=== PATIENT | female | born 1950 | race Caucasian/White ===

== ENCOUNTER 2024-01-31 11:43 | Emergency (ER) | payer MEDICARE, SELFPAY ==
[2024-01-31 11:54] VITALS: BP 190/94
[2024-01-31 12:24] LABS: % Basophils 0.3 % (0-2); % Eosinophils 3.6 % (0-6); % Immature Granulocytes 0.3 % (0-0.5); % Lymphocytes 28.6 % (20.5-51.1); % Monocytes 6.5 % (1.7-9.3); % Neutrophils 60.7 % (42.2-75.2); Absolute Eosinophils 0.2 10^3/uL (0-0.7); Absolute Lymphocytes 1.8 10^3/uL (1.2-3.4); Absolute Monocytes 0.4 10^3/uL (0.1-0.6); Absolute Neutrophils 3.7 10^3/uL (1.4-6.5); Hematocrit 39.7 % (37.0-47.0); Hemoglobin 13.6 g/dL (12.0-16.0); Mean Corp Hgb Conc. 34.3 g/dL (33.0-37.0); Mean Corpuscular Volume 93.4 fL (81.0-99.0); Mean Platelet Volume 9.8 fL (7.4-10.4); Nucleated Red Blood Cells % 0 %; Platelet Count 227 10^3/uL (130-400); Red Blood Cell Count 4.25 10^6/uL (4.20-5.40); Red Cell Dist. Width 12.3 % (11.5-14.5); White Blood Cell Count 6.1 10^3/uL (4.8-10.8)
[2024-01-31 12:42] LABS: ALT (SGPT) 31 U/L (0-35); AST (SGOT) 32 U/L (14-36); Albumin 4.9 g/dl (3.5-5.0); Alkaline Phosphatase 51 U/L (38-126); Blood Urea Nitrogen 17 mg/dl (7-17); Calcium 9.8 mg/dl (8.4-10.2); Carbon Dioxide 27 mmol/L (22-30); Chloride 105 mmol/L (98-107); Glucose 96 mg/dl (70-99); Potassium 4.5 mmol/L (3.5-5.1); Sodium 143 mmol/L (135-145); Total Bilirubin 0.8 mg/dl (0.2-1.3); Total Protein 7.7 g/dl (6.3-8.2); eGFR > 60.00
[2024-01-31 12:48] LABS: NT-proBNP 134 pg/ml; Troponin I < 0.012 ng/ml
[2024-01-31 13:38] VITALS: BP 150/70
--- NOTE | 2024-01-31 14:07 | ED.GENMED ---
History of Present Illness
General
Chief Complaint: Blood Pressure Problem
Source: patient
Exam Limitations: none
Time Seen by Provider: 01/31/24 13:52
Nursing documentation reviewed up to this point in time: agreed with
History of Present Illness
History of Present Illness:
73-year-old female with history of HTN, HLD presents stating 'my blood pressure was going higher and higher this morning.' States she's had sinus stuffiness and cough past 3 days, family stressors, poor sleep last night, her BP was '150, then 160,
then 170 and 180' so she went to who couldn't see her then so came here. Denies CP, SOB, abdominal pain. Denies n/v/d/c. Denies headache or feeling lightheaded or dizzy.
Past History
Past History
ED Past Medical History: HTN, Hypercholesterolemia and Other ('abnormal EKG')
ED Past Surgical History: None
Social History
Tobacco: Non-smoker
Alcohol: None
Personal:
Living: with family
Review of Systems
Review of Systems
Allergies reviewed?: Yes
All Other Systems: ROS reviewed and negative except as documented in HPI and ROS
Constitutional: Denies fever or fatigue
Respiratory: Denies trouble breathing
Cardiac: Denies chest pain or palpitations
ABD/GI: Denies abdominal pain, nausea, vomiting, diarrhea or anorexia
: Denies dysuria, frequency or difficulty voiding
Musculoskeletal: Reports no symptoms
Skin: Reports no symptoms
Neurological: Reports no symptoms
Psychiatric: Reports other (stressed due to family issue)
Phy Exam
Physical Exam
Physical Exam:
GENERAL: No acute distress. A&Ox3.
CONSTITUTIONAL: Afebrile.
EYES: Clear, conjunctivae normal
ENMT: moist mucus membranes, Pharynx nl
RESPIRATORY: Regular respirations, nonlabored, lungs clear.
CARDIOVASCULAR: Regular rate and rhythm, no murmurs, no rubs.
GI: Soft, nontender, normal BS
MUSCULOSKELETAL: Moves with ease. Well perfused.
SKIN: Warm, dry, pink
PSYCH: Normal mood and affect. Well kept, interactive and appropriate
NEUROLOGIC: Awake, alert and oriented. No focal neurological deficits
Course
Orders/Labs/Results
Orders:
Orders
01/31/24 11:58
Electrocardiogram (*1) Urgent
Reason for Study: Other
Other Reason for Exam: HTN
CR Chest - 2 Views Urgent
Comment:
Reason For Exam: cough
01/31/24 11:59
EKG- Treatment ONCE
01/31/24 12:12
Complete Blood Count/With Diff Urgent
Comprehensive Metabolic Panel Urgent
NT-proBNP Urgent
Troponin I Urgent
Abnormal Lab Results
01/31/24
12:12
MCH 32.0 H pg
(27.0-31.0)
01/31/24 12:12
01/31/24 12:12
Vital Signs
Initial and Last Documented VS:
Initial Vital Signs
Temp Pulse Resp BP Pulse Ox
98.1 F 72 18 190/94 98
01/31/24 11:54 01/31/24 11:54 01/31/24 11:54 01/31/24 11:54 01/31/24 11:54
Last Documented Vital Signs
Temp Pulse Resp BP Pulse Ox
98.1 F 72 18 150/64 98
01/31/24 11:54 01/31/24 14:19 01/31/24 14:19 01/31/24 14:19 01/31/24 14:19
MDM/Problems Addressed
MDM/Problems Addressed:
73-year-old female with history of HTN, HLD presents stating 'my blood pressure was going higher and higher this morning.' States she's had sinus stuffiness and cough past 3 days, family stressors, poor sleep last night, her BP was '150, then 160,
then 170 and 180' so she went to who couldn't see her then so came here. Denies CP, SOB, abdominal pain. Denies n/v/d/c. Denies headache or feeling lightheaded or dizzy.
BP now 150/70, asymptomatic
EKG: sinus with 1st degree block, LBB, left axis deviation. Pt states 'I know my EKG is abnormal' [facility] in [place] follows her, she's had Holter monitor and told not to worry. She does want a photo lab technician in this area. Referral provided
Labs normal.
CXR NAD
Pt reassured, she and state, that's all she needed was reassurance.
They are comfortable going home.
Return instructions discussed.
Referred to Cardiology catering convention services manager.
Referred to PCP hotline as she wants PCP in this area also.
Chronic conditions affecting care: HTN
*Critical Care Note
Total Time (30-74mins, 75-104mins- exclusive of procedures): Not Applicable
ED Attending Note
-
Portions of this chart may have been created with voice recognition software.� Occasional wrong word or��sound alike� substitutions may have occurred due to the inherent limitations of voice recognition software.
Discharge Plan
Departure
Patient Disposition: Home (Routine Discharge)
Date of Disposition: 01/31/24
Time of Disposition: 14:30
Patient with high blood pressure during this ER visit?: No
Condition: Good
Discharge Problem:
episode high blood pressure, Hypertension
Instructions: Stress, BLOOD PRESSURE
Referrals:
Tricia Naranjo, DO [Family Provider] -
Millicent Mora, [Active] - Next open appointment
Activity Restrictions/Additional Instructions:
As we discussed, your work up here today shows nothing worrisome.
Call the cardiology office and make next available appointment.
Someone will call you regarding a primary care provider
Interventions
Interventions:
*General Assessment Last Done: 01/31/24 11:54
Discharge Date and Time
Print Language: FRENCH
[2024-01-31 14:19] VITALS: BP 150/64
== END 2024-01-31 14:20 | disposition home or self-care (01) ==
LOC: EMR 11:43
PROVIDERS: Emergency Medicine; EMERGENCY PHYSICIAN Student in an Organized Health Care Education/Training Program; FAMILY PHYSICIAN Internal Medicine
DX: I10 Essential (primary) hypertension (principal); E78.00 Pure hypercholesterolemia, unspecified; I44.7 Left bundle-branch block, unspecified
CPT/HCPCS: 99285; 71046; 80053; 83880; 84484; 85025; 93005